=== PATIENT | female | born 1930 | race Asian ===

== ENCOUNTER 2020-04-18 17:58 | Inpatient (IN) | payer MEDICARE, OTHER ==
[~2020-04-18] VITALS: Ht 147.3 cm; Wt 68.0 kg
[2020-04-18] MEDS ORDERED: SODIUM CHLORIDE 0.9% 1000ML 1,000 ML IV STA (18:26)
[2020-04-18] MEDS ORDERED: MORPHINE SULFATE 2 MG/ML SYR 1ML IV STA (18:26)
[2020-04-18] MEDS ORDERED: ONDANSETRON HCL INJ 2MG/ML 2ML 2 MG/ML VIAL IV STA (18:26)
--- NOTE | 2020-04-18 18:34 | Emergency Department Note ---
History of Present Illnes History of Present Illness Chief Complaint: General Medicine Complaints History of Present Illness This is a 89 year old female . Chief Complaint Comment fell 1530 moving a trash can and fell on left hip. states cant bear wt. pt aaox4. w/c, seen in triage by . no loc Historian: Patient, Family Member Arrival Mode: Car Onset (how long ago): day(s) (toay) Location: left hip Quality: mod Radiation: non-radiation, back, neck, extremity, abdomen, periumbilical, flank, proximal, distal, other Severity: moderate Onset quality: sudden Duration (how long): day(s) (today) Timing of current episode: constant Progression: unchanged Context: recent illness, recent surgery, recent immobilization, recent travel, trauma/injury, new medications, hx of DVT/PE, non-compliance w/ medications, other Relieving factors: none Exacerbating factors: none Treatments prior to arrival: none Past Medical/Family History Physician Review I have reviewed the patient's past medical and family history. Any updates have been documented here. Past Medical History Recent Fever: No Clinical Suspicion of Infectio: No New/Unexplained Change in Ment: No Past Medical History: Hypertension, Diabetes Social History Smoking Cessation: Never Smoker Alcohol Use: None Any Illegal Drug Use: No TB Exposure/Symptoms: No Physically hurt or threatened: No Family History Family history of heart diseas: No Other Last Tetanus: u Any Pre-Existing Lines (PICC,: No Review of Systems Review of Systems Constitutional: no symptoms EENTM: no symptoms Cardiovascular: no symptoms Respiratory: no symptoms Gastrointestinal: no symptoms Genitourinary: no symptoms Musculoskeletal: joint pain, other (c/o left hip pain / left elbow pain post fall ) Neurological: no symptoms Psychological: no symptoms Endocrine: no symptoms Hematological/Lymphatic: no symptoms Review of other systems All other systems reviewed and negative. Physical Exam Related Data Allergies: Coded Allergies: No Known Allergies (Unverified , 04/18/20) Triage Vital Signs Vital Signs Date Time Temp Pulse Resp B/P (MAP) Pulse Ox O2 Delivery O2 Flow Rate FiO2 04/18/20 18:24 97.2 114 20 142/78 96 Vital signs reviewed: Yes Physical Exam CONSTITUTIONAL Constitutional: well-developed, well-nourished HENT HENT: normocephalic, atraumatic, oropharynx clear/moist, nose normal HENT L/R: left ext ear normal, right ext ear normal EYES Eyes: PERRL, conjunctivae normal NECK Neck: ROM normal PULMONARY Pulmonary: effort normal, breath sounds normal CARDIOVASCULAR Cardiovascular: regular rhythm, heart sounds normal, capillary refill normal, normal rate GASTROINTESTINAL Abdominal: soft, nontender, bowel sounds normal GENITOURINARY Genitourinary: exam deferred SKIN Skin: warm, dry MUSCULOSKELETAL Musculoskeletal: tenderness, other (lef hip pain / left elbow pain post fall ) NEUROLOGICAL Neurological: alert, oriented x 3, no gross motor or sensory deficits PSYCHOLOGICAL Psychological: mood/affect normal, judgement normal Results Laboratory Lab results reviewed: Yes Imaging Imaging Comments left inferior ramus fx left femoral neck fx Critical Care Time Subsequent provider I assumed direction of critical care for this patient from another provider of my specialty. Assessment & Plan Reassessment Reassessment This is a 89 year old female c/o fell 1530 moving a trash can and fell on left hip. states cant bear wt. pt aaox4. w/c, seen in triage by md. no loc - left hip pelvis left elbow rad ordered pt medicated w/ morphine 2mg and zofran 4gm Assessment & Plan Final Impression: (1) Fracture of inferior pubic ramus (2) Abrasion of left elbow (3) Fracture of femoral neck, left (4) Hip fracture, left (5) Fall Assessment & Plan discussed plan of care and need for admit spoke w/ Dr Law will admit Dr De Jesus in eval pt status will consult Depart Disposition: ADMITTED Last Vital Signs Date Time Temp Pulse Resp B/P (MAP) Pulse Ox O2 Delivery O2 Flow Rate FiO2 04/18/20 18:24 97.2 114 20 142/78 96 ANABELL ORTEGA Apr 18, 2020 18:34
[2020-04-18] MEDS ORDERED: SODIUM CHLORIDE 0.9% 1000ML 1,000 ML IV SCH (19:15)
[2020-04-18] MEDS ORDERED: ONDANSETRON HCL INJ 2MG/ML 2ML 2 MG/ML VIAL IV PRN (19:15)
[2020-04-18] MEDS ORDERED: MORPHINE SULFATE 2 MG/ML SYR 1ML IV PRN (19:30)
--- NOTE | 2020-04-18 20:14 | Diagnostic Imaging Report ---
EXAM: CHEST SINGLE (NOT PORTABLE) DATE: 04/18/2020 6:50 PM INDICATION: Fall, pain ^ERMD ORDER ^[id number] ^1850 ^Y COMPARISON: None FINDINGS: Lines and tubes: None Heart size normal. Aorta is atherosclerotic. No focal pulmonary opacity, pleural effusion or pneumothorax. Upper abdomen unremarkable. No acute bony abnormality identified. IMPRESSION: No evidence for acute disease. Signed by: Dr. Lionel James M.D. on 04/18/2020 8:10 PM
--- NOTE | 2020-04-18 20:15 | Diagnostic Imaging Report ---
EXAM: ELBOW LEFT COMPLETE DATE: 04/18/2020 6:50 PM INDICATION: ^FALL ^[id number] ^1849 ^Y COMPARISON: None FINDINGS: 3 views of the left elbow shows no displaced fracture or dislocation. No fat pad displacement to suggest intra-articular hematoma or fluid. Soft tissues unremarkable. IMPRESSION: No acute bony abnormality. Signed by: Dr. Lionel James M.D. on 04/18/2020 8:11 PM
[2020-04-18 20:16] LABS: BASOPHILS # (AUTO) 0.1 (0.0-0.1); BASOPHILS % 0.4 % (0.0-1.0); EOSINOPHILS % 0.1 % (0.0-6.0); HEMATOCRIT 38.3 % (34.2-44.1); HEMOGLOBIN 12.3 g/dL (12.0-16.0); LYMPHOCYTES # (AUTO) 1.6 (1.0-3.2); LYMPHOCYTES % 7.9 % (18.0-39.1); MEAN CORPUSCULAR HEMOGLOBIN 27.8 pg (28-32); MEAN CORPUSCULAR HGB CONC 32.1 g/dL (31-35); MEAN CORPUSCULAR VOLUME 86.5 fL (81-99); MONOCYTES # (AUTO) 1.4 (0.2-0.8); MONOCYTES % 7.2 % (4.4-11.3); NEUTROPHILS # (AUTO) 16.4 (2.1-6.9); NEUTROPHILS % 83.1 % (38.7-80.0); PLATELET COUNT 254 x10e3/uL (140-360); RED BLOOD COUNT 4.43 x10e6/uL (3.6-5.1); RED CELL DISTRIBUTION WIDTH 13.1 % (11.7-14.4)
--- OUTSIDE RECORDS SUMMARY | 2020-04-18 20:19 | XMS REPORT | Continuity of Care Document ---
Author Author [facility] t Organization [facility] Address [address] [place] [address] Dr. Membreno [address] [place] [phone] Phone Unavailable Care Team Providers Care Correctional Casework Specialist Name Role Phone ANABELL ORTEGA MD Attphys Unavailable Aida WALKER Admphys Unavailable Problems This patient has no known problems. Allergies, Adverse Reactions, Alerts This patient has no known allergies or adverse reactions. Medications This patient has no known medications. Procedures This patient has no known procedures. Results Test Description Test Time Test Comments Results Result Comments Source ELBOW LEFT COMPLETE 2020-04-18 20:10:00 [place] [id number] Patient Name: HELDER MERINO MR #: [id number] : 1930 Age/Sex: 89/F Req #: [id number] Adm Physician: Ordered by: ANABELL ORTEGA MD, MD Report #: [id number] Location: ER Room/Bed: Procedure: [id number] DX/ELBOW LEFT COMPLETE Exam Date: 04/18/20 Exam Time: 1849 REPORT STATUS: Signed EXAM: ELBOW LEFT COMPLETE DATE: 04/18/2020 6:50 PM INDICATION: FALL 20200418 Y COMPARISON: None FINDINGS: 3 views of the left elbow shows no displaced fracture or dislocation. No fat pad displacement to suggest intra- articular hematoma or fluid. Soft tissues unremarkable. IMPRESSION: No acute bony abnormality. Signed by: Dr. Ashley Saldaña M.D. on 04/18/2020 8:11 PM Dictated By: ASHLEY SALDAÑA MD 10 Transcribed By: RIKI on 04/18/202010 COPY TO: ANABELL ORTEGA CHEST SINGLE (NOT PORTABLE) 2020-04-18 20:09:00 [place] [address] Patient Name: HELDER MERINO MR #: [id number] : 1930 Age/Sex: 89/F Req #: [id number] Adm Physician: Ordered by: ANABELL ORTEGA MD, MD Report #: [id number] Location: ER Room/Bed: Procedure: [id number] DX/CHEST SINGLE (NOT PORTABLE) Exam Date: 04/18/20 Exam Time: 1849 REPORT STATUS: Signed EXAM: CHEST SINGLE (NOT PORTABLE) DATE: 04/18/2020 6:50 PM INDICATION: Fall, pain ERMD ORDER [id number] Y COMPARISON: None FINDINGS: Lines and tubes: None Heart size normal. Aorta is atherosclerotic. No focal pulmonary opacity, pleural effusion or pneumothorax. Upper abdomen unremarkable. No acute bony abnormality identified. IMPRESSION: No evidence for acute disease. Signed by: Dr. Ashley Saldaña M.D. on 04/18/2020 8:10 PM Dictated By: ASHLEY SALDAÑA MD 09 Transcribed By: RIKI on 04/18/202009 COPY TO: ANABELL ORTEGA
--- NOTE | 2020-04-18 20:20 | Diagnostic Imaging Report ---
EXAM: HIP LEFT 2-3 VW (+/- PELVIS) DATE: 04/18/2020 6:50 PM INDICATION: ^FALL ^Y COMPARISON: None FINDINGS: AP view of the pelvis and 2 views of the left hip were obtained. AP pelvis shows minimally displaced fractures of the superior and inferior pubic rami on the left. There is deformity of the left femoral neck. There is a 1.7 cm sclerotic focus in the right femoral metaphysis. Specific views of the left femur again show deformity of the femoral neck suggesting likely impacted femoral neck fracture. There is arterial calcification the proximal thigh. IMPRESSION: 1. Deformity of the left femoral neck with sclerosis suggesting acute impacted fracture. This might be further characterized with CT. 2. Fractures of the superior and inferior pubic rami on the left with appearance of acute fractures. 3. There is an indeterminate sclerotic lesion in the right femoral metaphysis. Signed by: Dr. Lionel James M.D. on 04/18/2020 8:16 PM
[2020-04-18 20:21] LABS: INR 0.92; PROTHROMBIN TIME 12.9 seconds (11.9-14.5)
[2020-04-18 20:22] LABS: PARTIAL THROMBOPLASTIN TIME 27.5 seconds (23.8-35.5)
[2020-04-18 20:32] LABS: ALBUMIN 4.6 g/dL (3.5-5.0); ALBUMIN/GLOBULIN RATIO 1.4 (0.8-2.0); ANION GAP 18.4 mmol/L (8-16); CALCIUM 9.9 mg/dL (8.4-10.2); CREATININE, SERUM 0.94 mg/dL (0.57-1.11); MAGNESIUM 1.9 MG/DL (1.3-2.1); POTASSIUM 4.4 mmol/L (3.5-5.1)
[2020-04-18 20:52] LABS: CREATINE KINASE MB 0.7 ng/mL (0-5.0); THYROID STIMULATING HORMONE 2.521 uIU/mL (0.350-4.940)
[2020-04-18 21:00] VITALS: BP 151/63
[2020-04-18] MEDS ORDERED: ASPIR 8181 MG PO (21:06)
[2020-04-18] MEDS ORDERED: RANITIDINE PO (21:06)
[2020-04-18] MEDS ORDERED: FAMOTIDINE40 MG PO (21:06)
[2020-04-18] MEDS ORDERED: FORTAMET500 MG PO (21:06)
[2020-04-18] MEDS ORDERED: LISINOPRIL10 MG PO (21:06)
[2020-04-18] MEDS ORDERED: CETIRIZINE HCL10 MG PO (21:06)
[2020-04-18] MEDS ORDERED: MULTI-VITAMIN1 EACH PO (21:06)
[2020-04-18] MEDS ORDERED: ATORVASTATIN CA20 MG PO (21:06)
[2020-04-18] MEDS: SENNOSIDES 8.6 MG TAB PO SCH (21:30)
[2020-04-18] MEDS: CELECOXIB 100 MG CAP PO SCH (21:30)
[2020-04-18] MEDS ORDERED: DEXTROSE 50% SYRINGE 50 ML IV PRN (21:30)
[2020-04-18] MEDS: METOPROLOL TARTRATE 25 MG TAB PO SCH (21:30)
[2020-04-18] MEDS ORDERED: BISACODYL 5 MG TAB EC PO PRN (21:30)
[2020-04-18] MEDS ORDERED: MAGNESIUM HYDROXIDE 30 ML UDC PO PRN (21:30)
[2020-04-18 22:10] LABS: CLARITY,URINE CLEAR (CLEAR); COLOR,URINE YELLOW (YELLOW)
[2020-04-18 22:11] LABS: KETONES,URINE NEGATIVE (NEGATIVE); LEUKOCYTE ESTERASE ,URINE NEGATIVE (NEGATIVE); NITRITE,URINE NEGATIVE (NEGATIVE); PROTEIN,URINE DIPSTICK NEGATIVE (NEGATIVE); URINE UROBILINOGEN 0.2 mg/dL (0.2 - 1)
[2020-04-18 22:12] LABS: BILIRUBIN,URINE NEGATIVE (NEGATIVE)
[2020-04-18 22:20] LABS: BACTERIA,URINE RARE /HPF; EPITHELIAL CELLS,URINE FEW /LPF
--- NOTE | 2020-04-18 22:30 | NUR ---
Received patient from the [facility] Alert and oriented. Transferred to bed. IV to right AC with 20 G needle patent. IV fluid infusing well. Patient states she takes medications at home but not sure of the names. Denies history of medical problems in the family. Placed on bucks traction 5 lbs as ordered. Gordy hose and foot pump applied. Patient instructed to be on NPO after midnight. Patient expressed understanding. Call light within reached and encouraged to use.
--- NOTE | 2020-04-18 23:00 | NUR ---
Patient will be on ADA diet per Dr. Law's order. Patient made aware.
[2020-04-18] MEDS: PIPER-TAZ 3.375 GM 50 ML IV SCH (23:50)
[2020-04-19] VITALS (11 sets, daily range): BP systolic 134–153; BP diastolic 61–71
[2020-04-19] MEDS: HYDROCODONE/APAP 5MG-325MG TAB PO PRN ×2 (03:49→08:52)
--- NOTE | 2020-04-19 05:28 | NUR ---
Foot pumps stopped at this time per patient request. Patient wants to have some rest from pumps at this time.
[2020-04-19 05:34] LABS: BASOPHILS # (AUTO) 0.1 (0.0-0.1); BASOPHILS % 0.5 % (0.0-1.0); EOSINOPHILS # (AUTO) 0.1 (0.0-0.4); EOSINOPHILS % 0.6 % (0.0-6.0); HEMATOCRIT 31.3 % (34.2-44.1); HEMOGLOBIN 10.1 g/dL (12.0-16.0); LYMPHOCYTES # (AUTO) 1.8 (1.0-3.2); LYMPHOCYTES % 13.5 % (18.0-39.1); MEAN CORPUSCULAR HEMOGLOBIN 28.4 pg (28-32); MEAN CORPUSCULAR HGB CONC 32.3 g/dL (31-35); MEAN CORPUSCULAR VOLUME 87.9 fL (81-99); MONOCYTES # (AUTO) 1.2 (0.2-0.8); MONOCYTES % 9.5 % (4.4-11.3); NEUTROPHILS # (AUTO) 9.7 (2.1-6.9); NEUTROPHILS % 75.1 % (38.7-80.0); PLATELET COUNT 197 x10e3/uL (140-360); RED BLOOD COUNT 3.56 x10e6/uL (3.6-5.1); RED CELL DISTRIBUTION WIDTH 13.1 % (11.7-14.4)
[2020-04-19] MEDS: PIPER-TAZ 3.375 GM 50 ML IV SCH ×4 (05:42→23:28)
[2020-04-19 06:00] LABS: ALANINE AMINOTRANSFERASE 43 IU/L (0-55); ALBUMIN 3.6 g/dL (3.5-5.0); ALBUMIN/GLOBULIN RATIO 1.4 (0.8-2.0); ALKALINE PHOSPHATASE 52 IU/L (40-150); BLOOD UREA NITROGEN 14 mg/dL (7-26); BUN/CREATININE RATIO 20 (6-25); CALCIUM 8.8 mg/dL (8.4-10.2); CARBON DIOXIDE 20 mmol/L (22-29); CHLORIDE 110 mmol/L (98-107); EST GLOMERULAR FILTRATION RATE > 60 ML/MIN (60-); GLUCOSE 164 mg/dL (74-118); MAGNESIUM 1.8 MG/DL (1.3-2.1); SODIUM 139 mmol/L (136-145)
[2020-04-19] MEDS: METOPROLOL TARTRATE 25 MG TAB PO SCH ×2 (08:53→17:11)
[2020-04-19] MEDS: LORATADINE 10 MG TAB PO SCH (08:53)
[2020-04-19] MEDS: CELECOXIB 100 MG CAP PO SCH ×2 (08:53→17:11)
[2020-04-19] MEDS: MULTIVITAMINS/MINERALS TAB PO SCH (08:54)
[2020-04-19] MEDS: FAMOTIDINE 20 MG TAB PO SCH (08:54)
[2020-04-19] MEDS: LISINOPRIL 10 MG TAB PO SCH (08:54)
[2020-04-19] MEDS: SENNOSIDES 8.6 MG TAB PO SCH ×2 (08:55→17:11)
--- NOTE | 2020-04-19 09:22 | History and Physical ---
CHIEF COMPLAINT: Status post a fall with fractures of the left superior pubic rami in the left hip femoral neck. HISTORY OF PRESENT ILLNESS: The patient is a very pleasant 89-year-old female, ambulatory baseline, very functional. Apparently, she was trying to move a large trash can, and fell to the left side, now came in with basically the left hip and a few pelvic bone fractures. Imaging of the hip showed that she has impacted left femur fractures and also the pelvic left pubic rami fracture as well. The patient has flexion to the left lower extremity. The patient is otherwise stable. Pain controlled with pain medication. PAST MEDICAL HISTORY: Hypertension, diabetes type 2, and osteoarthritis. PAST SURGICAL HISTORY: Noncontributory. SOCIAL HISTORY: The patient does not smoke or use alcohol. No recreational drug use. The patient is very functional. ALLERGIES: NO KNOWN ALLERGIES. HOME MEDICATIONS: The patient is on aspirin, Lipitor, Zyrtec, Pepcid, lisinopril, metformin, and multivitamin. PHYSICAL EXAMINATION: VITAL SIGNS: Temperature is 98.9, blood pressure 153/71, pulse rate 84, and respirations 18. GENERAL: The patient is not in acute distress. She is awake. HEENT: Normocephalic and atraumatic. NECK: Supple grossly. PULMONARY: Diminished breath sounds without any wheezing. CARDIOVASCULAR: S1, S2. Regular rate and rhythm. ABDOMEN: Soft. EXTREMITIES: . NEUROLOGIC: No focal deficits. IMAGING: X-ray of the left hip; deformity of the left femoral neck with sclerosis suggesting acute impacted fractures. Fracture of the superior and inferior pubic rami and acute fractures. LABORATORY DATA: WBC is 19.6, hemoglobin 12.3, hematocrit 38, platelet is 254. Chemistry; sodium is 143, potassium 4.4, chloride 107, bicarb 22, BUN 17, creatinine 0.9, and glucose is 172. IMPRESSION: 1. Status post fall with left impacted femur fractures and left pubic rami fractures. 2. Baseline diabetes. 3. Hypertension. 4. Dyslipidemia. PLAN: CT scan has recommended of the left hip and pelvic bone. Empiric antibiotics for now. Insulin sliding scale coverage. Blood pressure control. We will monitor the patient closely and adjust the medication. The patient should go to Surgery soon. Echocardiogram and cardiac clearance since the patient is not going to have surgery today. MD CLARA Reilly/BEATRIZ /[id number]
[2020-04-19] MEDS: INSULIN LISPRO 100 UNIT/1 ML 3ML VIAL SQ SCH ×4 (09:28→21:06)
--- NOTE | 2020-04-19 09:38 | NUR ---
DR. HORN HERE AND SAW PATIENT, EXAMINED HER, AND GAVE CARDIAC CLEARANCE FOR SURGERY.
--- NOTE | 2020-04-19 10:23 | Consultation ---
DATE OF CONSULTATION: 04/18/2020 Cardiology Consultation Note Thank you so much for asking me to see this nice lady in consultation. Mrs. Weaver is a charming, elderly 89-year-old woman, who presented to the emergency room after falling down at home. HISTORY OF PRESENT ILLNESS: The patient reports she was moving a large trash can and fell down. She denies any loss of consciousness. PAST MEDICAL HISTORY: Relatively insignificant. She reports she has had hypertension, but has not known of any diagnosis of diabetes. HOME MEDICATIONS: Appear to be lisinopril and metoprolol, but she cannot tell me the doses. PERSONAL AND SOCIAL HISTORY: She does not smoke or drink and she lives alone. She tells me her son-in-law is Brown Merida MD. PHYSICAL EXAMINATION: GENERAL: At this time shows a pleasant lady, who is alert and oriented. VITAL SIGNS: Slightly elevated blood pressure 140/80, pulse is 80 and regular. HEAD, EYES, EARS, NOSE, AND THROAT: Unremarkable. NECK: No jugular venous distention. No bruits. THORAX: Heart sounds S1 and S2 are equal. No Murmurs. LUNGS: Clear. ABDOMEN: Protuberant. Normal bowel sounds. Nontender. EXTREMITIES: Show the left leg in traction. No cyanosis, clubbing, or edema. LABORATORY DATA: EKG shows sinus rhythm without ST or T-wave changes. Her TSH and troponins were both normal. Urinalysis shows 6 to 10 red cells and 6 to 10 white cells. X-rays of her left hip suggest left sclerosis and possible impacted fracture. Her left superior and inferior pubic rami also show fractures. ASSESSMENT: 1. Hip and pelvic fractures. 2. Hypertension. 3. New onset diagnosis of diabetes with blood sugars in the 160s and 170s. PLAN: Cardiovascular status looks clinically stable for surgery. We will monitor blood pressure and blood sugars. Thank you for asking me to see her in consultation. MD BILLIE Stewart/MODL /[id number] cc: Miguel De Jesus MD
--- NOTE | 2020-04-19 12:19 | Diagnostic Imaging Report ---
TECHNIQUE: Magnetic resonance imaging of the pelvis and left hip was performed WITHOUT injected contrast. HISTORY: Fall, pain COMPARISON: None available. FINDINGS: Bone: Nondisplaced transverse fracture of the left femoral neck with impaction. Subacute insufficiency fractures of the superior and inferior pubic ramus and left sacral ala. Focus of cortical sclerosis of the right lateral proximal femur. Femoroacetabular Joint: Small left hip joint effusion. Acetabular labrum: No displaced labral tear. Articular Cartilage: Partial-thickness cartilage loss Muscle and tendons: The visualized tendons appear intact. Soft tissues: Soft tissue edema about the left hip and rami IMPRESSION: Acute nondisplaced transverse fracture of the left femoral neck with mild impaction. Subacute nondisplaced left superior and inferior pubic rami and left sacral ala insufficiency fractures. Signed by: Dr. Lux Sparks M.D. on 04/19/2020 12:15 PM
--- NOTE | 2020-04-19 13:09 | NUR ---
DR. WALKER HERE AND SAW PATIENT Addendum: 04/19/20 at 1310 by DERIAN MARLEY RN EXAMINED HER, AND WROTE ORDERS.
[2020-04-19] MEDS ORDERED: CEFAZOLIN SOD 1 GM/NS 50ML 100 ML IV ONE (13:15)
--- NOTE | 2020-04-19 19:10 | NUR ---
RECEIVED REPORT FROM PREVIOUS NURSE. CALL LIGHT WITHIN REACH. PATIENT IN BED.
[2020-04-20] VITALS (8 sets, daily range): BP systolic 122–148; BP diastolic 53–69
[2020-04-20] MEDS ORDERED: SODIUM CHLORIDE 0.9% 1000ML 1,000 ML IV SCH
[2020-04-20] MEDS: PIPER-TAZ 3.375 GM 50 ML IV SCH ×3 (05:47→16:56)
--- NOTE | 2020-04-20 06:59 | NUR ---
GAVE BEDSIDE SHIFT REPORT TO ONCOMING NURSE. CALL LIGHT WITHIN REACH. PATIENT IN BED. HOURLY ROUNDING PERFORMED.
[2020-04-20] MEDS: INSULIN LISPRO 100 UNIT/1 ML 3ML VIAL SQ SCH ×4 (07:30→21:34)
[2020-04-20] MEDS: FAMOTIDINE 20 MG TAB PO SCH (09:00)
--- NOTE | 2020-04-20 09:00 | NUR ---
Pt transferred to OR at this time for procedure to left hip. Pt is aox3 and able to verbalize needs. Pain to left hip tolerable is at this time.
[2020-04-20] MEDS ORDERED: BACITRACIN 50,000 UNIT VIAL ONE (09:17)
[2020-04-20] MEDS ORDERED: SUGAMMADEX SODIUM 200 MG/2 ML VIAL IV ONE (09:25)
--- NOTE | 2020-04-20 10:49 | NUR ---
FROM [facility] WILL BE ABLE TO SEND BACK AFTER THEY REVIEW CLINICALS
[2020-04-20] MEDS ORDERED: HYDROMORPHONE 0.2MG/ML-SOD CHL 30ML PCA SYRINGE IV PRN (11:00)
[2020-04-20] MEDS ORDERED: NALOXONE HCL INJ 0.4 MG/ML AMP IV PRN (11:00)
[2020-04-20] MEDS ORDERED: ONDANSETRON HCL INJ 2MG/ML 2ML 2 MG/ML VIAL IV PRN (11:00)
[2020-04-20] MEDS ORDERED: ONDANSETRON HCL INJ 2MG/ML 2ML 2 MG/ML VIAL ONE (11:18)
[2020-04-20] MEDS ORDERED: FENTANYL CITRATE/PF 100MCG/2 ML INJ ONE ×2 (11:22→15:06)
[2020-04-20] MEDS ORDERED: HYDROMORPHONE 0.2MG/ML-SOD CHL 30ML PCA SYRINGE IV ONE (11:43)
--- NOTE | 2020-04-20 11:56 | Diagnostic Imaging Report ---
EXAMINATION: PELVIS AP 1-2 VIEWS INDICATION: Postoperative COMPARISON: None FINDINGS: Single AP view of the pelvis demonstrates postoperative findings of ORIF of the left hip with 3 partially threaded screws. Alignment appears anatomic. No unexpected fracture. Surgical skin mynor in place. Mild degenerative changes of both tazlina hip joints. Focal cortical sclerosis at the right lateral proximal femur. IMPRESSION: Anatomic alignment status post ORIF of left hip. Signed by: Damon Clark MD on 04/20/2020 11:53 AM
[2020-04-20] MEDS ORDERED: ACETAMINOPHEN 1000 MG/100 ML IV PRN (12:00)
--- NOTE | 2020-04-20 12:00 | NUR ---
Pt returned from surgery at this time. Pt is aox3 and able to verbalize needs. Returned with Dilaudid BAT BOY/GIRL pump. Denies any pain at this time. Dressing to left hip is dry and intact with no blood noted. Foot pumps in place. Family at the bedside.
[2020-04-20] MEDS: METOPROLOL TARTRATE 25 MG TAB PO SCH ×2 (14:01→17:28)
[2020-04-20] MEDS: LISINOPRIL 10 MG TAB PO SCH (14:01)
[2020-04-20] MEDS: MULTIVITAMINS/MINERALS TAB PO SCH (14:01)
[2020-04-20] MEDS: CELECOXIB 100 MG CAP PO SCH ×2 (14:01→17:27)
[2020-04-20] MEDS: LORATADINE 10 MG TAB PO SCH (14:01)
[2020-04-20] MEDS: SODIUM CHLORIDE 0.9% 1000ML 1,000 ML IV SCH (14:02)
[2020-04-20] MEDS: SENNOSIDES 8.6 MG TAB PO SCH ×2 (14:02→17:27)
--- NOTE | 2020-04-20 14:26 | NUR ---
PT SIGNED CHOICE TO RETURN TO [facility], FILED IN CHART. PT SEEING PT CURRENTLY POST OP, WHEN ABLE TO PRINT THAT NOTE AND INCLUDE WILL FAX CLINICALS AND COVID FORM, COMPLETING RTF
--- NOTE | 2020-04-20 16:09 | NUR ---
FAXED CLINICALS TO [facility], COMPLETED RTF AND WILL NEED TO FAX COVID RESULTS WHEN GET IN.
[2020-04-20] MEDS: CEFAZOLIN SOD 1 GM/NS 50ML 50 ML IV SCH (16:56)
--- NOTE | 2020-04-20 19:02 | NUR ---
RECEIVED REPORT FROM PREVIOUS NURSE. CALL LIGHT WITHIN REACH. PATIENT IN BED. DENTON IS DRAINING WELL
[2020-04-20] MEDS ORDERED: LIDOCAINE HCL 2% LOCAL INJ 5 ML SDV VIAL INJ ONE (20:10)
[2020-04-20] MEDS ORDERED: ROCURONIUM BROMIDE 10 MG/ML 5ML VIAL IV ONE (20:10)
[2020-04-20] MEDS ORDERED: SEVOFLURANE INHAL SOLN 250 ML PEN BTL ONE (20:10)
[2020-04-20] MEDS ORDERED: CEFAZOLIN SOD 1 GM VIAL ONE (20:10)
[2020-04-20] MEDS ORDERED: LIDOCAINE HCL 2% JELLY 5 ML TUBE ONE (20:10)
[2020-04-20] MEDS ORDERED: ETOMIDATE 2 MG/ML 10 ML INJ IV ONE (20:10)
[2020-04-20] MEDS ORDERED: ACETAMINOPHEN 1000 MG/100 ML IV ONE (20:10)
[2020-04-21] VITALS (10 sets, daily range): BP systolic 132–149; BP diastolic 56–95
[2020-04-21] MEDS: PIPER-TAZ 3.375 GM 50 ML IV SCH ×5 (00:14→23:42)
[2020-04-21] MEDS: SODIUM CHLORIDE 0.9% 1000ML 1,000 ML IV SCH ×3 (00:25→18:42)
[2020-04-21] MEDS: CEFAZOLIN SOD 1 GM/NS 50ML 50 ML IV SCH ×2 (01:26→10:40)
[2020-04-21 05:51] LABS: BASOPHILS # (AUTO) 0.1 (0.0-0.1); BASOPHILS % 0.5 % (0.0-1.0); EOSINOPHILS # (AUTO) 0.6 (0.0-0.4); EOSINOPHILS % 5.1 % (0.0-6.0); HEMATOCRIT 28.1 % (34.2-44.1); LYMPHOCYTES # (AUTO) 2.3 (1.0-3.2); LYMPHOCYTES % 20.3 % (18.0-39.1); MEAN CORPUSCULAR HEMOGLOBIN 27.6 pg (28-32); MEAN CORPUSCULAR VOLUME 86.2 fL (81-99); MONOCYTES # (AUTO) 1.3 (0.2-0.8); MONOCYTES % 11.3 % (4.4-11.3); NEUTROPHILS # (AUTO) 6.9 (2.1-6.9); NEUTROPHILS % 62.2 % (38.7-80.0); PLATELET COUNT 158 x10e3/uL (140-360); RED BLOOD COUNT 3.26 x10e6/uL (3.6-5.1); RED CELL DISTRIBUTION WIDTH 13.2 % (11.7-14.4)
[2020-04-21 06:28] LABS: ANION GAP 15.3 mmol/L (8-16); BLOOD UREA NITROGEN 8 mg/dL (7-26); BUN/CREATININE RATIO 12 (6-25); CALCIUM 7.7 mg/dL (8.4-10.2); CARBON DIOXIDE 19 mmol/L (22-29); CHLORIDE 109 mmol/L (98-107); CREATININE, SERUM 0.66 mg/dL (0.57-1.11); EST GLOMERULAR FILTRATION RATE > 60 ML/MIN (60-); GLUCOSE 142 mg/dL (74-118); POTASSIUM 3.3 mmol/L (3.5-5.1); SODIUM 140 mmol/L (136-145)
--- NOTE | 2020-04-21 07:12 | NUR ---
GAVE BEDSIDE SHIFT REPORT TO ONCOMING NURSE. CALL LIGHT WITHIN REACH. PATIENT IN BED. HOURLY ROUNDING PERFORMED.
[2020-04-21] MEDS: CELECOXIB 100 MG CAP PO SCH ×2 (08:29→17:04)
[2020-04-21] MEDS: RIVAROXABAN 10 MG TABLET PO SCH (08:30)
[2020-04-21] MEDS: METOPROLOL TARTRATE 25 MG TAB PO SCH ×2 (08:30→17:04)
[2020-04-21] MEDS: LORATADINE 10 MG TAB PO SCH (08:30)
[2020-04-21] MEDS: SENNOSIDES 8.6 MG TAB PO SCH ×2 (08:31→17:04)
[2020-04-21] MEDS: LISINOPRIL 10 MG TAB PO SCH (08:31)
[2020-04-21] MEDS: MULTIVITAMINS/MINERALS TAB PO SCH (08:31)
--- NOTE | 2020-04-21 08:32 | NUR ---
SPOKE TO REP THIS MORNING, HE STATES DID NOT GET CLINICALS REFAXED THIS MORNING.
[2020-04-21] MEDS: INSULIN LISPRO 100 UNIT/1 ML 3ML VIAL SQ SCH ×4 (08:34→20:49)
[2020-04-21] MEDS: FAMOTIDINE 20 MG TAB PO SCH (09:00)
[2020-04-21] MEDS: HYDROCODONE/APAP 5MG-325MG TAB PO PRN ×3 (10:43→19:45)
[2020-04-21] MEDS ORDERED: ONDANSETRON HCL 4 MG ORAL DISINTEGRATING TAB PO PRN (14:30)
--- NOTE | 2020-04-21 15:48 | NUR ---
CALLED SON IN LAW TO LET KNOW I GOT A ROOM, HE STATES HE ABSOLUTELY DOES NOT WANT HER GOING, HE STATES THAT SINCE THEY CANNOT COME AND GO TO VISIT HER AT THE SNF LEVEL SHE WILL DECLINE TOO MUCH. WANTS HOME HEALTH INSTEAD. LET CM KNOW AND NOTIFIED THE MD.
--- NOTE | 2020-04-21 15:49 | Operative Report ---
DATE OF PROCEDURE: 04/20/2020 SURGEON: Miguel De Jesus MD PREOPERATIVE DIAGNOSIS: Left impacted femoral neck fracture. POSTOPERATIVE DIAGNOSIS: Left impacted femoral neck fracture. OPERATIONS AND PROCEDURE PERFORMED: The patient underwent a closed reduction and percutaneous pinning of the left femoral neck fracture. DIRECTOR RADIO NEWS: There was no assistant plant controller. ANESTHESIA: General endotracheal intubation anesthesia. IV FLUIDS: Per the anesthesia record. BRIEF DESCRIPTION OF THE PATIENT'S OPERATIVE PROCEDURE: Ms. Weaver was taken to the operating room and placed in supine position on the fracture table. Following induction of general anesthesia as well as endotracheal intubation, the patient's left lower extremity was placed in a well-padded longitudinal traction. The right lower extremity was placed in a well-padded lithotomy position. Fluoroscopic evaluation of the left hip joint demonstrated an impacted left femoral neck fracture. The leg was manipulated under anesthesia and improvement in the alignment of the fracture was achieved in a closed fashion. The patient's thigh and flank were then prepped and draped in a standard surgical fashion. An incision was created over the lateral aspect of the thigh. This incision was carried through the skin only. Blunt dissection was used to deepen the incision to the level of the tensor fascia steve. The tensor fascia steve was then divided in line with the skin incision. Blunt dissection exposed the lateral aspect of the femur. Three pins from the 7.3 cannulated screw system were then inserted from lateral to medial through the neck and into the head of the femur. The position of those pins was then checked fluoroscopically and found to be appropriate. Measurements were taken and then three screws were advanced over the pins providing compression across the fracture site. The position of the screws was again checked fluoroscopically in both the AP and lateral planes and found to be appropriate. The surgical wound was then irrigated. The wound was closed in a multilayer fashion. Sterile dressings were applied. The patient was then awakened and taken to the postanesthesia care in stable condition. Miguel De Jesus MD EBR/MODL /[id number]
--- NOTE | 2020-04-21 19:00 | NUR ---
PATIENT IN BED. CALL LIGHT WITHIN REACH. BEDSIDE SHIFT REPORT RECEIVED FROM PREVIOUS NURSE.
[2020-04-22] VITALS (8 sets, daily range): BP systolic 139–158; BP diastolic 57–72
[2020-04-22 05:52] LABS: HEMATOCRIT 28.7 % (34.2-44.1); HEMOGLOBIN 9.2 g/dL (12.0-16.0)
[2020-04-22] MEDS: PIPER-TAZ 3.375 GM 50 ML IV SCH ×3 (05:56→17:07)
--- NOTE | 2020-04-22 07:13 | NUR ---
GAVE BEDSIDE SHIFT REPORT TO ONCOMING NURSE. CALL LIGHT WITHIN REACH. PATIENT IN BED.
--- NOTE | 2020-04-22 07:15 | NUR ---
Report received from Mary RODGERS and assumed care of patient. Patient asked if she needed anything at this time and she denied needs.
[2020-04-22] MEDS: INSULIN LISPRO 100 UNIT/1 ML 3ML VIAL SQ SCH ×4 (07:30→21:01)
[2020-04-22] MEDS: RIVAROXABAN 10 MG TABLET PO SCH (08:48)
[2020-04-22] MEDS: LORATADINE 10 MG TAB PO SCH (08:48)
[2020-04-22] MEDS: CELECOXIB 100 MG CAP PO SCH ×2 (08:48→17:06)
[2020-04-22] MEDS: METOPROLOL TARTRATE 25 MG TAB PO SCH ×2 (08:49→17:07)
[2020-04-22] MEDS: MULTIVITAMINS/MINERALS TAB PO SCH (08:49)
[2020-04-22] MEDS: SENNOSIDES 8.6 MG TAB PO SCH ×2 (08:49→17:07)
[2020-04-22] MEDS: LISINOPRIL 10 MG TAB PO SCH (08:49)
[2020-04-22] MEDS: FAMOTIDINE 20 MG TAB PO SCH (08:49)
--- NOTE | 2020-04-22 09:06 | NUR ---
CALLED AND SPOKE WITH SON IN LAW DR MONA LYLE [phone], SET UP AND FAXED CLINICALS WITH PERMISSION FROM HIM FOR [facility]. EQUIPMENT WILL BE DELIVERED TODAY PRIOR TO DISCHARGE. EDUCATED ABOUT IMM OBTAINED SIGNATURES AND FILED IN CHART, UPDATED CM AND NURSE
--- NOTE | 2020-04-22 09:20 | NUR ---
[facility] NOT IN NETWORK FAXED TO [facility].
[2020-04-22] MEDS: HYDROCODONE/APAP 5MG-325MG TAB PO PRN (12:08)
--- NOTE | 2020-04-22 12:22 | NUR ---
Up in chair by PT for lunch and patient complains of gas pains and pressure. Pain med given.
--- NOTE | 2020-04-22 14:50 | NUR ---
DR WALKER HERE AND SPOKE WITH PT'S DTR REGARDING TAKING PT HOME EXPLAINED TO HER THAT IT WILL BE "VERY HARD" TO TAKE CARE OF PT AT HOME PT'S DTR STILL INSISTS THAT THEY CAN HANDLE HER AT HOME PT WORKED WITH P.T. THIS AFTERNOON AND WOULD NOT BEAR WEIGHT ON RIGHT LEG PT HAD TO USE SLIDE BOARD TO TRANSFER PT INTO WHEELCHAIR CM CALLED DR WALKER AND UPDATED HIM ON PT'S CONDITION DR SUN CALLED AND SPOKE WITH PT'S DTR AT BEDSIDE DISCUSSING COMPLEXITY OF CARE FOR PT OFFERED [facility]UTE RE[facility], SUGGESTED [facility] [place] PT'S DTR AGREEABLE AND WILL CALL HER SISTERS TO SEE IF THEY AGREE [place] CALLED REP JOSLYN FOR [facility], AND INQUIRED ABOUT COVID VISITATION RULES THERE SHE STATES 1 PERSON PER DAY CAN VISIT PT, VISITATION HRS 9-6 PT CAN HAVE A DIFFERENT VISITOR EVERY DAY DTR WILL CALL ME BACK AFTER DISCUSSING WITH HER FAMILY
--- NOTE | 2020-04-22 15:28 | NUR ---
CALLED HOME CARE PROVIDERS AND PUT REFERRAL ON HOLD
--- NOTE | 2020-04-22 16:23 | NUR ---
PT AND PT'S FAMILY AGREES ON [facility] CHOICE LETTER SIGNED BY PT'S DTR DONNA WELLS CLINICALS FAXED TO [facility] [phone] CONFIRMATION REC'D PLAN DC WHEN APPROVED
--- NOTE | 2020-04-22 18:39 | NUR ---
Report given at bedside to Mary RODGERS.
--- NOTE | 2020-04-22 18:58 | NUR ---
RECEIVED BEDSIDE SHIFT REPORT FROM PREVIOUS NURSE. CALL LIGHT WITHIN REACH. PATIENT IN BED.
[2020-04-23] VITALS (8 sets, daily range): BP systolic 148–171; BP diastolic 62–81
[2020-04-23] MEDS: PIPER-TAZ 3.375 GM 50 ML IV SCH ×2 (05:39)
[2020-04-23 05:42] LABS: BASOPHILS # (AUTO) 0.1 (0.0-0.1); BASOPHILS % 0.6 % (0.0-1.0); EOSINOPHILS # (AUTO) 0.3 (0.0-0.4); EOSINOPHILS % 2.9 % (0.0-6.0); HEMATOCRIT 29.6 % (34.2-44.1); HEMOGLOBIN 9.3 g/dL (12.0-16.0); LYMPHOCYTES # (AUTO) 1.9 (1.0-3.2); MEAN CORPUSCULAR HEMOGLOBIN 28.2 pg (28-32); MEAN CORPUSCULAR HGB CONC 31.4 g/dL (31-35); MEAN CORPUSCULAR VOLUME 89.7 fL (81-99); MONOCYTES % 9.3 % (4.4-11.3); NEUTROPHILS # (AUTO) 7.3 (2.1-6.9); NEUTROPHILS % 68.5 % (38.7-80.0); PLATELET COUNT 194 x10e3/uL (140-360)
[2020-04-23 06:24] LABS: ANION GAP 16.3 mmol/L (8-16); CALCIUM 8.3 mg/dL (8.4-10.2); CARBON DIOXIDE 18 mmol/L (22-29); CHLORIDE 107 mmol/L (98-107); CREATININE, SERUM 0.55 mg/dL (0.57-1.11); EST GLOMERULAR FILTRATION RATE > 60 ML/MIN (60-); GLUCOSE 115 mg/dL (74-118); POTASSIUM 3.3 mmol/L (3.5-5.1); SODIUM 138 mmol/L (136-145)
[2020-04-23 07:14] LABS: BLOOD UREA NITROGEN 7 mg/dL (7-26); BUN/CREATININE RATIO 12 (6-25)
--- NOTE | 2020-04-23 07:28 | NUR ---
GAVE BEDSIDE SHIFT REPORT TO ONCOMING NURSE. CALL LIGHT WITHIN REACH. PATIENT IN BED. HOURLY ROUNDING PERFORMED
[2020-04-23] MEDS: INSULIN LISPRO 100 UNIT/1 ML 3ML VIAL SQ SCH ×4 (07:30→21:22)
--- NOTE | 2020-04-23 07:45 | NUR ---
pt resting in bed. pt educated on calling nurse button for assisstance with getting oob. pt verbalizes understanding. dresg to left hip dry and intact
[2020-04-23] MEDS: CELECOXIB 100 MG CAP PO SCH ×2 (08:25→16:43)
[2020-04-23] MEDS: MULTIVITAMINS/MINERALS TAB PO SCH (08:25)
[2020-04-23] MEDS: RIVAROXABAN 10 MG TABLET PO SCH (08:25)
[2020-04-23] MEDS: LORATADINE 10 MG TAB PO SCH (08:25)
[2020-04-23] MEDS: METOPROLOL TARTRATE 25 MG TAB PO SCH ×2 (08:25→16:44)
[2020-04-23] MEDS: SENNOSIDES 8.6 MG TAB PO SCH ×2 (08:26→16:43)
[2020-04-23] MEDS: LISINOPRIL 10 MG TAB PO SCH (08:26)
[2020-04-23] MEDS: FAMOTIDINE 20 MG TAB PO SCH (08:27)
[2020-04-23] MEDS: HYDROCODONE/APAP 5MG-325MG TAB PO PRN ×2 (09:12→19:18)
[2020-04-23] MEDS ORDERED: POTASSIUM CHLORIDE 10MEQ EA PO NR (10:00)
[2020-04-23] MEDS: CEPHALEXIN 500 MG CAP PO SCH ×3 (11:03→21:22)
[2020-04-23] MEDS: IRON SUCROSE 100 MG in SODIUM CHLORIDE 0.9% 100 ML 100 ML IV SCH (11:03)
[2020-04-23] MEDS: FAMOTIDINE 20 MG/2 ML VIAL IV SCH ×2 (11:03→21:21)
--- NOTE | 2020-04-23 12:01 | NUR ---
phy therapy at bedside
[2020-04-23] MEDS ORDERED: SODIUM CHLORIDE 0.9% 250ML 250 ML ONE (12:07)
--- NOTE | 2020-04-23 14:19 | NUR ---
Nutrition Screen Note RD Recommendation for Physician: -Continue current diet as ordered -Encourage Glucerna nutrition supplement if PO intake <50% of meals Plan of Care: RD following, monitoring for tolerance and adequacy Nutrition reason for involvement: Length of stay Primary Diagnose(s): abrasion of left elbow, fall, left fracture of femoral neck, fracture of inferior pubic ramus, left hip fracture PMH: Hypertension, diabetes type 2, and osteoarthritis Ht: 58 in Wt:150 lb BMI: 31.3 kg/m2 IBW: [address] Assessment: (04/23/20) Chart reviewed. Labs and meds reviewed. Pt is an 89 year old female admitted with abrasion of left elbow, fall, left fracture of femoral neck, fracture of inferior pubic ramus, and left hip fracture. Spoke to pt and family member at bedside. Pt reports she is eating about 25% of her meals. Family member stated pt usually does not eat very much. Pt was unsure of her usual weight. No N/V/D/C or chewing/swallowing issues. Offered pt a nutrition supplement, but family member stated she has tried encouraging a nutrition supplement but pt will not drink it. Will continue to monitor. Current Diet: 1800 ADA Malnutrition Evaluation (04/23/20) The patient does not meet criteria for a specified degree of malnutrition at this time. Will re-evaluate at follow-up as appropriate. Diet Education Needs Assessment: Pt declined the need for diet education Nutrition Care Level: low Signed: Maryjane Arciniega, RD, LD
--- NOTE | 2020-04-23 19:35 | NUR ---
Received pt in bed, awake a/o x3 C/o pain to LLE. Medicated by prev shift nurse. Bed in low position, call jaffe and personal items within reach. Will cont to mon.
[2020-04-24] VITALS (9 sets, daily range): BP systolic 141–162; BP diastolic 65–78
[2020-04-24] MEDS: HYDRALAZINE HCL 25 MG TAB PO PRN ×2 (04:58→14:40)
[2020-04-24] MEDS: CEPHALEXIN 500 MG CAP PO SCH ×3 (06:10→21:46)
--- NOTE | 2020-04-24 06:32 | NUR ---
Pt resting in bed, c/o discomfort with brief change this am, refuse pain medication at this time. Will cont to mon, enc pt to use call light and req assistance.
[2020-04-24] MEDS: INSULIN LISPRO 100 UNIT/1 ML 3ML VIAL SQ SCH ×4 (07:30→21:47)
[2020-04-24] MEDS: LORATADINE 10 MG TAB PO SCH (08:55)
[2020-04-24] MEDS: METOPROLOL TARTRATE 25 MG TAB PO SCH ×2 (08:55→16:47)
[2020-04-24] MEDS: CELECOXIB 100 MG CAP PO SCH ×2 (08:55→16:46)
[2020-04-24] MEDS: SENNOSIDES 8.6 MG TAB PO SCH ×2 (08:55→16:46)
[2020-04-24] MEDS: MULTIVITAMINS/MINERALS TAB PO SCH (08:55)
[2020-04-24] MEDS: RIVAROXABAN 10 MG TABLET PO SCH (08:55)
[2020-04-24] MEDS: FAMOTIDINE 20 MG/2 ML VIAL IV SCH ×2 (08:55→21:46)
[2020-04-24] MEDS: LISINOPRIL 10 MG TAB PO SCH (08:55)
[2020-04-24] MEDS: ACETAMINOPHEN 325 MG TAB PO SCH ×2 (08:56→15:15)
[2020-04-24] MEDS: IRON SUCROSE 100 MG in SODIUM CHLORIDE 0.9% 100 ML 100 ML IV SCH (11:23)
[2020-04-24] MEDS: HYDROCODONE/APAP 5MG-325MG TAB PO PRN (12:03)
--- NOTE | 2020-04-24 15:15 | NUR ---
patient c/o mild chest tightness. pressure 196/75. hydralazine 25mg PO given. EKG done and shows sinus rhythm. Dr Law text for further orders. awaiting return call.
[2020-04-25] VITALS (8 sets, daily range): BP systolic 143–162; BP diastolic 64–78
--- NOTE | 2020-04-25 07:01 | NUR ---
bedside shift report received from shiftman nurse. pt awake, in stable condition, no complaints at this time. will continue to monitor.
[2020-04-25] MEDS: CEPHALEXIN 500 MG CAP PO SCH ×3 (07:21→21:12)
[2020-04-25] MEDS: INSULIN LISPRO 100 UNIT/1 ML 3ML VIAL SQ SCH ×4 (08:22→21:07)
[2020-04-25] MEDS ORDERED: METOPROLOL TARTRATE 25 MG TAB PO ONE (08:45)
[2020-04-25] MEDS: SENNOSIDES 8.6 MG TAB PO SCH ×2 (09:00→17:00)
[2020-04-25] MEDS ORDERED: METOPROLOL TARTRATE 25 MG TAB PO SCH (09:00)
--- NOTE | 2020-04-25 09:19 | NUR ---
CM CALLED BY DR MONA LYLE THIS MORNING (PTS SON IN LAW) EXPLAINED THAT HE WANTS TO CANCEL [facility] AND START A [facility] EVAL HE STATES THAT [facility] IS TOO FAR FROM THEIR HOME AND CLEAR [facility] WOULD BE MORE CONVENIENT CM NOTIFIED DR SUN OF [facility] CANCELLED [facility] EVAL AND START[facility] EV[facility] CHOICE LETTER IN CHART FAXED CLINICAL TO [facility] AT [phone], CONFIRMATION REC'D
[2020-04-25] MEDS: RIVAROXABAN 10 MG TABLET PO SCH (10:23)
[2020-04-25] MEDS: CELECOXIB 100 MG CAP PO SCH ×2 (10:23→18:26)
[2020-04-25] MEDS: LORATADINE 10 MG TAB PO SCH (10:24)
[2020-04-25] MEDS: METOPROLOL TARTRATE 50 MG TAB PO SCH ×2 (10:24→21:12)
[2020-04-25] MEDS: MULTIVITAMINS/MINERALS TAB PO SCH (10:25)
[2020-04-25] MEDS: LISINOPRIL 10 MG TAB PO SCH (10:32)
[2020-04-25] MEDS: HYDROCODONE/APAP 7.5MG-325MG 1 EA TAB PO PRN (11:50)
[2020-04-25] MEDS: FAMOTIDINE 20 MG TAB PO SCH (16:30)
--- NOTE | 2020-04-25 19:00 | NUR ---
Received the patient in report.lyeing in the bed.stable condition.
--- NOTE | 2020-04-25 20:10 | NUR ---
Repositioned.stable condition.no resp.distress.no pain voiced.bed locked and in lowest position.phone and call light within reach.instructed to call for assistance as needed.
[2020-04-26] VITALS: BP 143/73
[2020-04-26 04:00] VITALS: BP 138/63
[2020-04-26] MEDS: CEPHALEXIN 500 MG CAP PO SCH ×2 (05:42→15:40)
--- NOTE | 2020-04-26 07:08 | NUR ---
BED SIDE SHIFT REPORT GIVEN TO ONCOMING RN.STABLE CONDITION.
[2020-04-26] MEDS: FAMOTIDINE 20 MG TAB PO SCH ×2 (07:30→15:40)
--- NOTE | 2020-04-26 07:55 | NUR ---
SPOKE WITH DR. SUN AT BEDSIDE REGARDING DENTON; HE STATES DENT[facility] CAN REMAIN AT THIS TIME DUE TO PT'S LIMITED MOBILITY.
[2020-04-26 08:19] VITALS: BP 138/63
[2020-04-26] MEDS: INSULIN LISPRO 100 UNIT/1 ML 3ML VIAL SQ SCH ×3 (08:22→16:32)
[2020-04-26 08:52] VITALS: BP 173/78
[2020-04-26] MEDS: SENNOSIDES 8.6 MG TAB PO SCH ×2 (09:00→15:40)
[2020-04-26] MEDS: ACETAMINOPHEN 325 MG TAB PO SCH (09:00)
[2020-04-26] MEDS: CELECOXIB 100 MG CAP PO SCH ×2 (09:52→15:40)
[2020-04-26] MEDS: RIVAROXABAN 10 MG TABLET PO SCH (09:52)
[2020-04-26] MEDS: LORATADINE 10 MG TAB PO SCH (09:52)
[2020-04-26] MEDS: MULTIVITAMINS/MINERALS TAB PO SCH (09:53)
[2020-04-26] MEDS: LISINOPRIL 10 MG TAB PO SCH (09:53)
[2020-04-26] MEDS: METOPROLOL TARTRATE 50 MG TAB PO SCH (09:56)
[2020-04-26] MEDS: HYDROCODONE/APAP 7.5MG-325MG 1 EA TAB PO PRN (11:19)
[2020-04-26 11:30] VITALS: BP 142/72
--- NOTE | 2020-04-26 16:31 | NUR ---
WAS TOLD PT WAS DENIED FOR INPATIENT REHAB. CALLED [facility] WITH HOME CARE PROVIDERS THEY WILL ADD HER BACK TO THEIR SCHEDULE. CALLED [employer] WITH [facility] TO SEE IF CAN GET WALKER SWITCHED TO A YOUTH AND GAVE CONTACT INFORMATION TO HAPPEN.
--- NOTE | 2020-04-26 17:00 | NUR ---
SPOKE WITH DR SUN WHO STATES PT DENTON CAN BE DISCONTINUED; STATES IF PT STARTS TO HAVE RETENTION, HER HOME HEALTH THAT HAS BEEN SET UP CAN REINSERT THE DENTON. DENTON REMOVED BY NURSE; TIP INTACT. PT TOLERATED WELL.
== END 2020-04-26 17:25 | disposition home or self-care (01) | DRG 482 ==
LOC: ER 17:58 → ERHOLD 20:16 → MED/SURG 22:45
PROVIDERS: ADMIT Internal Medicine; ATTEND Internal Medicine
PROC: 0QH734Z Insertion of Internal Fixation Device into Left Upper Femur, Percutaneous Approach (ICD-10-PCS; principal; 2020-04-20 11:00)
DX: M84.75 Atypical femoral fracture (principal); E11.9 Type 2 diabetes mellitus without complications; I10 Essential (primary) hypertension; E78.5 Hyperlipidemia, unspecified; Z11.59 Encounter for screening for other viral diseases; D50.9 Iron deficiency anemia, unspecified; G89.18 Other acute postprocedural pain; W19.XXXA Unspecified fall, initial encounter
CPT/HCPCS: 36415; 71045; 72170; 72195; 76000; 80048; 80053; 81001; 82550; 82553; 82948; 83735; 83880; 84443; 84484; 85014; 85018; 85025; 85610; 85730; 86850; 86900; 87086; 87186; 93005; 93306; 96372; 97139; 99284; C1713; J0690; J1756; J2001; J2270; J2405; J2543; J3010; J7030; J7050; U0002

== ENCOUNTER → 2020-08-10 | Outpatient (RCR) | payer MEDICARE ==
[~2020-08-10] MED LIST: ASPIR 8181 MG PO; ATORVASTATIN CA20 MG PO; CETIRIZINE HCL10 MG PO; FAMOTIDINE40 MG PO; FORTAMET500 MG PO; LISINOPRIL10 MG PO; MULTI-VITAMIN1 EACH PO; RANITIDINE PO
== END ==
LOC: PT 07-13 13:50
PROVIDERS: ATTEND Specialist
DX: S72.002A Fracture of unspecified part of neck of left femur, initial encounter for closed fracture (principal); S32.9XXA Fracture of unspecified parts of lumbosacral spine and pelvis, initial encounter for closed fracture
CPT/HCPCS: 97139

== ENCOUNTER 2020-08-30 15:00 | Outpatient (RCR) | payer MEDICARE | END 2020-09-10 | LOC: PT 15:00 | PROVIDERS: ATTEND Specialist | DX: S72.002A Fracture of unspecified part of neck of left femur, initial encounter for closed fracture (principal); S32.9XXA Fracture of unspecified parts of lumbosacral spine and pelvis, initial encounter for closed fracture; M62.81 Muscle weakness (generalized); R26.81 Unsteadiness on feet; M25.652 Stiffness of left hip, not elsewhere classified ==